=== PATIENT | female | born 1960 | race Caucasian/White ===

== ENCOUNTER → 2016-08-27 | Outpatient (CLI) | payer BC ==
[2016-08-27 12:55] LABS: BLOOD UREA NITROGEN 19 mg/dL (7-22); BUN/CREATININE RATIO 27.14 (6-20); CHLORIDE 101 meq/L (98-112); CREATININE 0.7 mg/dL (0.50-1.20); EST GLOMERULAR FILTRATION > 60 (>60 ml/min/1.73m(2)); GLUCOSE 84 mg/dL (78-110); POTASSIUM 4.3 meq/L (3.8-5.2); SODIUM 139 meq/L (135-145)
== END ==
LOC: MOB LAB 10:38
PROVIDERS: ATTEND Nurse Practitioner Family
DX: R03.0 Elevated blood-pressure reading, without diagnosis of hypertension (principal)
CPT/HCPCS: 36415; 80048

== ENCOUNTER → 2016-09-01 | Outpatient (CLI) | payer BC ==
[2016-09-01 07:24] LABS: ASPARTATE AMINO TRANSFERASE 27 IU/L (8-39); BILIRUBIN,TOTAL 0.8 mg/dL (0.3-1.2); BLOOD UREA NITROGEN 15 mg/dL (7-22); BUN/CREATININE RATIO 21.42 (6-20); CALCIUM 9.5 mg/dL (8.7-10.7); CHLORIDE 104 meq/L (98-112); CREATININE 0.7 mg/dL (0.50-1.20); EST GLOMERULAR FILTRATION > 60 (>60 ml/min/1.73m(2)); GLUCOSE 91 mg/dL (78-110); POTASSIUM 4.1 meq/L (3.8-5.2); SODIUM 141 meq/L (135-145); TOTAL PROTEIN 7.4 g/dL (6.1-8.0)
[2016-09-01 07:25] LABS: BASOPHILS # (AUTO) 0.03 10*3/UL; BASOPHILS % (AUTO) 0.7 % (0-1); EOSINOPHILS % (AUTO) 3.8 % (0-8); HEMATOCRIT 39.4 % (37.0-47.0); HEMOGLOBIN 13.4 g/dL (12.0-16.0); IMM GRAN % (AUTO) 0.2 % (0-5); IMM GRAN# (AUTO) 0.01 10*3/UL; LYMPHOCYTES # (AUTO) 1.56 10*3/uL; LYMPHOCYTES % (AUTO) 35.2 % (10-50); MEAN CORPUSCULAR HEMOGLOBIN 29.9 PG (27-31); MEAN PLATELET VOLUME 9.6 FL (7.4-12.2); MONOCYTES # (AUTO) 0.32 10*3/UL (0.3-0.8); MONOCYTES % (AUTO) 7.2 % (5-15); NEUTROPHILS # (AUTO) 2.34 10*3/UL; NEUTROPHILS % (AUTO) 52.9 % (50-80); RDW COEFFICIENT OF VARIATION 13.2 % (11.5-14.5); RED BLOOD COUNT 4.48 10^6/uL (4.20-5.40); WHITE BLOOD COUNT 4.43 10^3/uL (4.8-10.8)
[2016-09-01 08:30] LABS: ERYTHROCYTE SEDIMENTATION RATE 6 MM/HR (0-20)
[2016-09-01 08:31] LABS: PLATELET MORPHOLOGY COMMENT NORMAL MORPHOLOGY (NORM)
--- NOTE | 2016-09-01 12:19 | DI ---
MRI BRAIN W/WO NATALEE,09/01/2016 10:15 AM: Clinical History: Hallucinations with old factory hallucinations. Previous Exam: None at this facility. Findings: Multiplanar MR images are obtained through the brain both before and following the intravenous admini stration of 18 mL of OptiMARK. The midline structures are unremarkable. There is mild the related volume loss. The posterior fossa i s unremarkable without Chiari malformation. The internal auditory canals and cerebellopontine angles are unremarkable. The intraorbital structure s and paranasal sinuses are unremarkable. There are few small foci of increased FLAIR and T2 signal within the subcortical white matter bilater ally demonstrating no midline shift and no hemorrhage. There is no abnormally restricted diffusion. There is no significant enhancement. There is some leftward deviation of the bony nasal septum. The parapharyngeal fat is normal and symmetric. Impression: Few scattered areas of increased FLAIR and T2 signal within the subcortical white matter most likely represents age-related small vessel ischemic change.
[2016-09-02 13:26] LABS: TOT PRT SERUM 7.1
[2016-09-02 15:41] LABS: A/G RATIO 1.03 (()); ALB PEP SER 3.6 g/dL (3.4-4.7); ALP1 GLOB 0.2 g/dL (0.1-0.3); ALP2 GLOB 0.8 g/dL (0.6-1.0); BETA GLOBS 1.1 g/dL (0.7-1.2); GAMMA GLOBS 1.4 g/dL (0.6-1.6)
[2016-09-02 16:01] LABS: IMPRESSION SEE COMMENTS (())
== END ==
LOC: MRI 06:44
PROVIDERS: ATTEND Specialist
DX: G60.3 Idiopathic progressive neuropathy (principal); I99.8 Other disorder of circulatory system
CPT/HCPCS: 70553; 80053; 82175; 82300; 82607; 82951; 82952; 83655; 83825; 84155; 84165; 84443; 85025; 85652; 86038; A9579

== ENCOUNTER 2016-12-31 13:03 | Emergency (ER) | payer BC ==
[2016-12-31] MEDS ORDERED: ONDANSETRON 4 MG/2 ML VIAL IVP ONE (13:15)
[2016-12-31] MEDS ORDERED: MECLIZINE 25 MG CHEWABLE TABLET PO ONE (13:15)
[2016-12-31] MEDS ORDERED: Sodium Chloride 0.9% 1,000 ML PRIMARY IV ONE (13:15)
[2016-12-31] MEDS ORDERED: LORazepam 2 MG/1 ML VIAL IVP PRN (13:17)
[2016-12-31 13:23] LABS: BASOPHILS # (AUTO) 0.09 10*3/UL; EOSINOPHILS # (AUTO) 0.32 10*3/UL; EOSINOPHILS % (AUTO) 3.4 % (0-8); HEMATOCRIT 40.5 % (37.0-47.0); HEMOGLOBIN 14.1 g/dL (12.0-16.0); LYMPHOCYTES # (AUTO) 2.73 10*3/uL; MEAN CORPUSCULAR HEMOGLOBIN 30.7 PG (27-31); MEAN CORPUSCULAR HGB CONC 34.8 g/dL (33-37); MEAN PLATELET VOLUME 9.4 FL (7.4-12.2); MONOCYTES # (AUTO) 0.59 10*3/UL (0.3-0.8); MONOCYTES % (AUTO) 6.3 % (5-15); NEUTROPHILS # (AUTO) 5.62 10*3/UL
--- NOTE | 2016-12-31 13:23 | PDOC ---
Dizziness HPI - General Chief Complaint: Neurological Complaints Stated Complaint: Dizzy, Weak Date Seen by Provider: 12/31/16 Time Seen by Provider: 13:18 Source: POSITIVE: Patient Exam Limitations: POSITIVE: No limitations Nurse's Notes Reviewed & Considered: Yes - History of Present Illness Initial Comments: This pleasant 56-year-old female comes in today with chief complaint of dizziness and weakness. Patient was at work as a nurse here at [employer] when she had increasing weakness, dizziness, and difficulty finding the right words. She has a history of brain tumor unknown type. She's recently been diagnosed with epilepsy, and started on Topamax. She took her first 2 doses yesterday and her third dose this morning and since has been increasing symptoms as noted above. Presently denies any headache, fever chills or sweats, nausea vomiting or diarrhea. sHe does have sense of loss of balance and weakness. Body Location Affected: REPORTS: Head Timing: REPORTS: Gradual Duration: <24 hours Context: REPORTS: Sleep Quality: REPORTS: Other (Dizziness and weakness.) Associated Symptoms: REPORTS: Movement Sense - Vague, Weakness, Numbness (Left- sided facial numbness), Sense of Confusion Current Ability to Walk/Stand: REPORTS: Walks w/o Assistance Usual Ability to Walk/Stand: REPORTS: Walks w/o Assistance Aggrevated by: REPORTS: Position Changes, Movement of Head Similar Symptoms Previously: No Recently seen/treated/hospitalized: No Any Prior Injuries Related to Current Complaint?: No - Patient Home Medications Home Medications: Home Medications Aspirin [Aspir 81] 1 tab PO DAILY tab 02/24/14 Cholecalciferol (Vitamin D3) [Vitamin D3] 1 cap PO DAILY cap 02/24/14 Cranberry Conc/Ascorbic Acid [Cranberry 6,000 Mg Softgel] 1 each PO DAILY cap 02/24/14 Lactobacillus Combination No.4 [Probiotic] 1 each PO DAILY cap 02/24/14 Multivitamin [Multi Vitamin Daily] 1 each PO DAILY tab 02/24/14 [place]-3 Fatty Acids [Fish Oil] 1 tab PO DAILY cap 02/24/14 Estrogens, Conj Vaginal Cream [Premarin Vaginal Cream] 0.5 gm VAGINAL 3XW #45 tube 12/03/15 Pantoprazole Sodium 1 tab PO BID #180 tab 02/14/16 Diazepam [Valium] 1 tab PO ONCE PRN #1 tab 08/29/16 Topiramate [Topamax] 25 mg PO BID 12/31/16 - Patient Allergies Allergies/Adverse Reactions: Allergies Allergy/AdvReac Type Severity Reaction Status Date / Time methylprednisolone Allergy Unknown RASH Verified 12/31/16 13:16 [From Medrol] Sulfa (Sulfonamide Allergy rash Verified 12/31/16 13:16 Antibiotics) tetracycline [Tetracycline] Allergy joint Verified 12/31/16 13:16 swelling Past Medical History - heen HEENT History: Denies History Cardiovascular History: Denies History Respiratory History: Denies History Gastrointestinal History: GERD Genitourinary History: Denies History Endocrine History: Denies History Musculoskeletal History: Rheumatoid Arthritis Prosthesis or Implant: No Neurological History: Denies History Blood Disorders: Denies History Psychiatric History: Denies History History of Sexually Transmitted Diseases: No Cancer History: Denies History History of MDRO: No History of Other Communicable Diseases: No Alcohol Use: None Substance Use Type: None Previous Surgical History: Yes Type / Date of Surgery: BILATERAL KNEE SCOPES, PARTIAL HYSTERECTOMY Anesthesia Reactions: No Malignant Hyperthermia: No Significant Family History: No pertinent family hx ROS - Limitations ROS Limitations: No Limitations Constitution: REPORTS: Weakness Cardiovascular: REPORTS: Denies Cardiac Symptoms Respiratory: REPORTS: Denies Resp Symptoms Neurological: REPORTS: Confusion, Numbness, Difficulty Walking, Weakness Gastrointestinal: REPORTS: Denies GI Symptoms Endocrine: REPORTS: Denies Symptoms Musculoskeletal: REPORTS: Denies MS Symptoms Genitourinary: REPORTS: Denies Symptoms Eyes: REPORTS: Denies Symptoms ENT: REPORTS: Denies Symptoms Skin: REPORTS: Denies Skin Symptoms Lympathic: REPORTS: Denies Lympathic Symptoms Immunologic: POSITIVE: Denies Symptoms Psychiatric: POSITIVE: Confusion, Anxiety Dizziness PE - General Appearance General Appearance: POSITIVE: Alert, Mild Distress - HEENT HEENT: POSITIVE: Head Inspection Nml, Eyes Inspection Nml, Ears Inspection Nml, Nose Inspection Nml, Oral/Dental Inspect. Nml, Pharynx Inspect. Nml, PERRL, EOMI - Pupil Size Pupil Size: 5 mm: Bilateral - Neck Neck: POSITIVE: Supple - Respiratory Respiratory: POSITIVE: No Respiratory Distress, Breath Sounds Normal - Cardiovascular Cardiovascular: POSITIVE: Regular Rate & Rhythm, No Murmur, No Gallop, Heart Sounds Normal - Abdomen Abdomen: Soft: (All Quadrants), Normal Bowel Sounds: (All Quadrants), Denies Tenderness: (All Quadrants) - Skin Skin: POSITIVE: Intact, Normal For Race, Warm, Dry, No Rash - Extremities Extremity: Non-Tender: (All Extremities), Normal ROM: (All Extremities), Normal Inspection: (All Extremities), Pelvis Stable: (All Extremities) - Neuro/Psych Neuro/Psych: POSITIVE: Alert, Mood Appropriate, Normal Speech, Normal Cognition , Depressed Affect Cranial Nerves: POSITIVE: Normal As Tested, No Evidence of Acute CVA Cerebellar: POSITIVE: Normal As Tested Sensorimotor: POSITIVE: No Motor Deficits, No Sensory Deficits, Reflexes Normal Reflexes: Patellar (R): 4+, Patellar (L): 4+, Radial (R): 4+, Radial (L): 4+ Dizziness Progress - Results Reviewed by me Xrays/CTs/US Reviewed by me: Yes Discussed with Radiologist: Yes Lab Results Reviewed: Yes Lab Results:: Laboratory Results 12/31/16 12/31/16 12/31/16 Range/Units 13:15 13:18 13:30 WBC 9.37 (4.8-10.8) 10^3/uL RBC 4.60 (4.20-5.40) 10^6/uL Hgb 14.1 (12.0-16.0) g/dL Hct 40.5 (37.0-47.0) % MCV 88.0 (81-99) FL MCH 30.7 (27-31) PG MCHC 34.8 (33-37) g/dL RDW Std Deviation 40.9 (39-50) fL RDW Coeff of Lucinda 13.0 (11.5-14.5) % Plt Count 306 (140-350) 10*3/uL MPV 9.4 (7.4-12.2) FL Immature Gran % (Auto) 0.2 (0-5) % Neut % (Auto) 60.0 (50-80) % Lymph % (Auto) 29.1 (10-50) % [place] % (Auto) 6.3 (5-15) % Eos % (Auto) 3.4 (0-8) % Baso % (Auto) 1.0 (0-1) % Immature Gran # (Auto) 0.02 10*3/UL Neut # (Auto) 5.62 10*3/UL Lymph # (Auto) 2.73 10*3/uL [place] # (Auto) 0.59 (0.3-0.8) 10*3/UL Eos # (Auto) 0.32 10*3/UL Baso # (Auto) 0.09 10*3/UL WBC Morphology Comment Normal morphology (NORM) Plt Morphology Comment Normal morphology (NORM) RBC Morph Comment Normal morphology (NORM) PT 10.2 (9.7-11.4) secs INR 0.99 (0.00-5.90) N/A Sodium 140 (135-145) meq/L Potassium 3.5 L (3.8-5.2) meq/L Chloride 104 (98-112) meq/L Carbon Dioxide 22 L (23-33) meq/L Anion Gap 14 (5-20) BUN 14 (7-22) mg/dL Creatinine 0.9 (0.50-1.20) mg/dL Estimated GFR > 60 (>60 ml/min/1.73m(2)) BUN/Creatinine Ratio 15.55 (6-20) Glucose 100 (78-110) mg/dL Calculated Osmolality 290.0 (267-292) mOsm/kg Calcium 9.1 (8.7-10.7) mg/dL Magnesium 1.9 (1.6-2.4) mg/dL Total Bilirubin 0.5 (0.3-1.2) mg/dL AST 26 (8-39) IU/L ALT 35 (9-52) IU/L Alkaline Phosphatase 76 (38-126) IU/L C-Reactive Protein 0.9 (0.0-0.9) mg/dL Total Protein 8.0 (6.1-8.0) g/dL Albumin 4.6 (3.5-4.8) g/dL Globulin 3.4 (2.50-4.10) g/dL Albumin/Globulin Ratio 1.30 (1.3-2.0) mg/g TSH 1.06 (0.2700-4.2000) uIU/mL Free T4 1.44 (0.93-1.71) ng/dL Ur Collection Type Pending Urine Color Yellow Urine Clarity Clear (CLEAR) Urine pH 6.5 (5.0-8.5) Ur Specific [place] <=1.005 (1.005-1.030) Urine Protein Negative (NEG) mg/dl Urine Glucose (UA) Negative (NEG) mg/dL Urine Ketones Negative (NEG) Urine Occult Blood Negative (NEG) Urine Nitrate Negative (NEG) Urine Bilirubin Negative (NEG) Urine Urobilinogen 0.2 (0.2) EU/dL Ur Leukocyte Esterase Negative (NEG) Ur Culture Indicated? Pending EKG Interpretation:: POSITIVE: Normal Sinus Rhythm, Normal Rate, Normal QRS, Normal ST/T - Patient's Progress Pain Medication Addressed: POSITIVE: Not Applicable Re-Examine Time:: 14:51 Status: POSITIVE: Improved MDM / ED Course: Patient was evaluated, an IV started, blood drawn and sent to the lab for studies, radiographic examinations were obtained. Findings: CBC is normal, comprehensive metabolic panel is unremarkable, EKG per my interpretation shows sinus rhythm, MRI shows no masses present, there is no acute ischemia noted. TSH and T4 normal. Urinalysis is negative. CRP is normal. Assessment: Dizziness, this is most likely related to her new medication Topamax. Plan: Discharge home follow up with her neurologist and with her primary care physician calling later today for follow-up appointment. CVA/Syncope Quality Measure Initiative: POSITIVE: EKG - Consult Counseled: POSITIVE: Patient, Family, RE: Lab Results, RE: Radiology Results, RE : DX, RE: Need for F/U Patient Care Time - Estimated PCT Patient Care Time (In Minutes): 45 Vital Signs - Recent Vital Signs Vital Signs: Vital Signs (Last 8 hours) Temp Pulse Resp BP Pulse Ox 12/31/16 13:03 97.4 F 76 16 169/103 92 - VS Reviewed Vital Signs Reviewed: Yes Discharge Clinical Impression: Dizziness Discharge Disposition: Discharged to Home Condition: Stable Patient Instructions Given at Discharge: Dizziness (ED)
[2016-12-31 13:30] LABS: PLATELET MORPHOLOGY COMMENT NORMAL MORPHOLOGY (NORM); RBC MORPHOLOGY COMMENT NORMAL MORPHOLOGY (NORM); WBC MORPHOLOGY COMMENT NORMAL MORPHOLOGY (NORM)
[2016-12-31 13:31] VITALS: RESP 16; TEMP 97.4
[2016-12-31 13:31] LABS: BLOOD UREA NITROGEN 14 mg/dL (7-22); BUN/CREATININE RATIO 15.55 (6-20); C-REACTIVE PROTEIN 0.9 mg/dL (0.0-0.9); CALCIUM 9.1 mg/dL (8.7-10.7); EST GLOMERULAR FILTRATION > 60 (>60 ml/min/1.73m(2)); MAGNESIUM 1.9 mg/dL (1.6-2.4); SERUM ALBUMIN 4.6 g/dL (3.5-4.8)
[2016-12-31 13:53] LABS: BILIRUBIN,URINE NEGATIVE (NEG); CLARITY,URINE CLEAR (CLEAR); COLOR,URINE YELLOW; GLUCOSE, URINE (UA) NEGATIVE (NEG); NITRATE,URINE NEGATIVE (NEG); OCCULT BLOOD,URINE NEGATIVE (NEG); PH,URINE 6.5 (5.0-8.5); PROTEIN,URINE NEGATIVE (NEG); UROBILINOGEN,URINE 0.2 EU/dL (0.2)
[2016-12-31 14:02] LABS: FREE T4 (FREE THYROXINE) 1.44 ng/dL (0.93-1.71)
--- NOTE | 2016-12-31 14:21 | DI ---
AP CHEST X-RAY, 12/31/2016 1:15 PM : Clinical History: Dizziness Previous Exam: None at this facility. There is no acute soft tissue or bony abnormality. Heart size is normal. Lungs are clear. Mediastinal structures are normal. There are no pulmonary nodules. Reading: Normal chest x-ray.
--- NOTE | 2016-12-31 14:21 | DI ---
MRI BRAIN W/O CN,12/31/2016 1:15 PM: Clinical History: Dizziness and left-sided facial numbness. Previous Exam: September 01, 2016 Findings: Multiplanar MR images are obtained through the brain without contrast, and demonstrate normal, symmet mariana ventricles and other CSF containing spaces. There is no mass, hemorrhage or midline shift. The orozco rrounding soft tissue and osseous structures are unremarkable. There are multiple areas of increased T2 and FLAIR signal involving the subcortical and periventricul ar white matter. The paranasal sinuses are unremarkable. The intraorbital structures are also unremarkable. There is no abnormally restricted diffusion. The internal auditory canals are unremarkable. Major vascular flow voids are unremarkable. The cerebellopontine angles are unremarkable. Impression: 1. Few areas of increased FLAIR and T2 signal within the periventricular and subcortical white matter most consistent with small vessel ischemic change. 2. No evidence of acute ischemia.
[2017-01-01 19:23] LABS: URINE SAMPLE TYPE CLEAN CATCH URINE
== END 2016-12-31 15:03 | disposition home or self-care (01) ==
LOC: ER 13:03 → SUPCPDRO 13:03 → ER 15:03
DX: R42 Dizziness and giddiness (principal); R53.1 Weakness
CPT/HCPCS: 70551; 71010; 80053; 81003; 83735; 84439; 84443; 85025; 85610; 86140; 96361; 96374; 96375; 99283; J2060; J2405; J7030

== ENCOUNTER → 2017-01-13 | Outpatient (CLI) | payer BC | LOC: MOB LAB 09:44 | PROVIDERS: ATTEND Physician Assistant | DX: R30.0 Dysuria (principal) | CPT/HCPCS: 87088 ==

== ENCOUNTER → 2017-01-29 | Outpatient (CLI) | payer BC ==
--- NOTE | 2017-01-29 09:53 | DI ---
LEFT KNEE, 01/27/2017 12:31 PM: Clinical History: Acute left knee pain. Previous Exam: None at this facility. 4 views are submitted. The AP and tunnel projections are weight bearing views. There is a moderate radha int effusion. There is mild narrowing of the medial compartment and of the patellofemoral compartment consistent with degenerative arthritic disease. There is a 4 general farm manager metallic clamp that has been anc hored in the proximal tibia, probably for a patellar tendon transplant procedure. Reading: Moderate joint effusion. Mild arthritic changes are present in the medial and patellofemoral compartm ents.
== END ==
LOC: ORTHO 17:21
PROVIDERS: ATTEND Physician Assistant
DX: M25.561 Pain in right knee (principal); M17.12 Unilateral primary osteoarthritis, left knee; M25.462 Effusion, left knee
CPT/HCPCS: 73562